=== PATIENT | male | born 1945 | race Caucasian/White ===

== ENCOUNTER 2017-09-05 14:42 | Inpatient (IN) | payer OTHER ==
--- NOTE | 2017-09-05 15:19 | EDPHY ---
H & P Time Seen by Provider: 09/05/17 15:03 HPI/ROS: CHIEF COMPLAINT: Right rib injury HISTORY OF PRESENT ILLNESS: The patient is a 72-year-old male who presents emergency department after having a mechanical fall in striking the right rib cage. Patient states that he was hiking was foot got caught. He fell forward striking his ribs. He now has moderate to severe pain on the right lateral aspect of his chest. It is worse with movement. Worse with deep breath. He does not feel short of breath at rest. He also has abrasion on his left hand right knee. He has no bony tenderness in his extremities. He is able to ambulate without difficulty. He did not strike his head or lose consciousness. REVIEW OF SYSTEMS: My complete review of systems is negative except as mentioned in the HPI. Past Medical/Surgical History: Includes hypothyroidism, anxiety, cervical fusion Smoking Status: Never smoked Physical Exam: Vitals noted. Normal oxygen saturation GENERAL: Well-appearing, in no acute distress, alert. HEAD: No evidence of trauma. EYES: PERRLA, EOMI, normal to inspection. ENT: Airway intact, no dental or oral injury, no malocclusion, no hemotympanum , normal external examination. NECK: The trachea is midline. There is no crepitus. The C-spine is nontender. NEXUS criteria is negative (no midline tenderness, no distracting injury, no altered mental status, no recent alcohol use, no focal neurologic deficit). RESPIRATORY: Clear to auscultation bilaterally, no rales, rhonchi or wheezing. There is no crepitus or palpable rib fractures. CVS: Regular rate and rhythm, no rubs, murmurs, or gallops. ABDOMEN: Soft, nontender, nondistended, normal bowel sounds, no bruising or abrasions. Pelvis: Stable. No tenderness palpation. Hips full range of motion. BACK: Normal to inspection, no spinal tenderness, no spinal step off, no notable bruising or abrasions. SKIN: Normal color, warm, dry. No pallor or diaphoresis. EXTREMITIES: Right upper extremity: Atraumatic. No visible signs of trauma. No tenderness palpation. Neurovascular intact distally. Left upper extremity: Abrasion on his right palm. No tenderness palpation. Neurovascular intact distally. Right lower extremity: The right knee abrasion. No patellar tenderness to palpation. Full range of motion. Neurovascular intact distally. Left lower extremity: Atraumatic. No visible signs of trauma. No tenderness palpation. Neurovascular intact distally. NEURO/PSYCH: Alert and oriented x 3, GCS 15, normal mood and affect, normal motor sensory exam. Constitutional: Initial Vital Signs Temperature (C) 36.6 C 09/05/17 14:46 Heart Rate 54 L 09/05/17 14:46 Respiratory Rate 20 09/05/17 14:46 Blood Pressure 144/79 H 09/05/17 14:46 O2 Sat (%) 97 09/05/17 14:46 O2 Delivery Mode Room Air Allergies/Adverse Reactions: erythromycin base Allergy (Verified 09/05/17 14:45) Penicillins Allergy (Verified 09/05/17 14:45) Sulfa (Sulfonamide Antibiotics) Allergy (Verified 09/05/17 14:45) Home Medications: Medication Instructions Recorded Acetaminophen [Tylenol 325mg (*)] 325 mg PO Q6 PRN 09/05/17 Escitalopram Oxalate [Lexapro] 10 mg PO DAILY 09/05/17 Herbals/Supplements -Info Only 1 ea PO DAILY 09/05/17 Levothyroxine [Synthroid 125 mcg 125 mcg PO DAILY06 09/05/17 (*)] Naproxen Sodium [Aleve 220 MG (*)] 220 mg PO BID PRN 09/05/17 Zolpidem Tartrate [Ambien 5MG (*)] 5 mg PO HS 09/05/17 clonazePAM [klonoPIN (*)] 1 mg PO HS PRN 09/05/17 oxyCODONE/APAP 5/325 [Percocet 1 - 2 tab PO Q6H PRN 09/05/17 5/325 (*)] Medical Decision Making - Diagnostics Imaging Results: Imaging Impressions Chest X-Ray 09/05/17 14:49 Impression: Moderate right pneumothorax. Results discussed with Dr. Sierra at 3:28 PM. ED Course/Re-evaluation: In the emergency department I discussed possible etiologies with the patient. I answered all his questions. X-ray of his chest was ordered. I do not feel he needs imaging of his hand or knee. Chest x-ray: Please refer the dictated report. There is a moderate size pneumothorax on the right I discussed the results with the patient. I answered all his questions. I discussed case with Dr. MEY Castellanos. He will come evaluate the patient. 1605: I rechecked the patient. He was doing well. He had no complaints. Dr. Castellanos was in the emergency department. He placed a chest tube on the right side. I subsequently ordered a repeat chest x-ray to observed to placement. I rechecked the patient. He was lying in bed tolerating the chest tube. His saturation was normal. He was given fentanyl 100 mcg IV for pain control. Differential Diagnosis: My differential includes but is not limited to fracture, dislocation, contusion , pneumothorax, hemothorax, liver injury, hip fracture, knee fracture, contusion - Data Points Laboratory Results: Laboratory Results 09/05/17 15:48 09/05/17 15:48 09/05/17 09/05/17 09/05/17 15:48 15:48 15:48 WBC 8.01 10^3/uL 10^3/uL (3.80-9.50) RBC 4.71 10^6/uL 10^6/uL (4.40-6.38) Hgb 15.3 g/dL g/dL (13.7-17.5) Hct 43.7 % % (40.0-51.0) MCV 92.8 fL fL (81.5-99.8) MCH 32.5 pg pg (27.9-34.1) MCHC 35.0 g/dL g/dL (32.4-36.7) RDW 13.1 % % (11.5-15.2) Plt Count 184 10^3/uL 10^3/uL (150-400) MPV 11.5 fL fL (8.7-11.7) Neut % (Auto) 81.0 % H % (39.3-74.2) Lymph % (Auto) 9.7 % L % (15.0-45.0) Cooke % (Auto) 7.6 % % (4.5-13.0) Eos % (Auto) 0.5 % L % (0.6-7.6) Baso % (Auto) 0.6 % % (0.3-1.7) Nucleat RBC Rel Count 0.0 % % (0.0-0.2) Absolute Neuts (auto) 6.48 10^3/uL 10^3/uL (1.70-6.50) Absolute Lymphs (auto) 0.78 10^3/uL L 10^3/uL (1.00-3.00) Absolute Monos (auto) 0.61 10^3/uL 10^3/uL (0.30-0.80) Absolute Eos (auto) 0.04 10^3/uL 10^3/uL (0.03-0.40) Absolute Basos (auto) 0.05 10^3/uL 10^3/uL (0.02-0.10) Absolute Nucleated RBC 0.00 10^3/uL 10^3/uL (0-0.01) Immature Gran % 0.6 % % (0.0-1.1) Immature Gran # 0.05 10^3/uL 10^3/uL (0.00-0.10) PT 14.8 SEC SEC (12.0-15.0) INR 1.14 (0.83-1.16) APTT 24.2 SEC SEC (23.0-38.0) Sodium 138 mEq/L mEq/L (135-145) Potassium 4.5 mEq/L mEq/L (3.3-5.0) Chloride 103 mEq/L mEq/L (97-110) Carbon Dioxide 22 mEq/l mEq/l (22-31) Anion Gap 13 mEq/L mEq/L (8-16) BUN 21 mg/dL mg/dL (7-23) Creatinine 0.9 mg/dL mg/dL (0.7-1.3) Estimated GFR > 60 Glucose 96 mg/dL mg/dL (70-100) Calcium 9.4 mg/dL mg/dL (8.5-10.4) Medications Given: Discontinued Medications Fentanyl (Sublimaze) 50 mcg IVP EDNOW ONE Stop: 09/05/17 16:22 Last Admin: 09/05/17 16:29 Dose: 50 mcg Fentanyl (Sublimaze) 100 mcg IVP EDNOW ONE Stop: 09/05/17 17:06 Last Admin: 09/05/17 17:06 Dose: 100 mcg Midazolam HCl (Versed) 1 mg IVP EDNOW ONE Stop: 09/05/17 17:06 Last Admin: 09/05/17 17:07 Dose: 1 mg Ondansetron HCl (Zofran) 4 mg IVP EDNOW ONE Stop: 09/05/17 16:22 Last Admin: 09/05/17 16:29 Dose: 4 mg Departure - Departure Disposition: [facility] Inpatient Acute Clinical Impression: Contusion of rib on right side Qualifiers: Encounter type: initial encounter Qualified Code(s): S20.211A - Contusion of right front wall of thorax, initial encounter Pneumothorax Qualifiers: Encounter type: initial encounter Condition: Good
[2017-09-05 15:59] LABS: PLATELET COUNT 184 10^3/uL (150-400)
[2017-09-05 16:16] LABS: INR 1.14 (0.83-1.16); PROTIME(PATIENT) 14.8 SEC (12.0-15.0)
[2017-09-05] MEDS ORDERED: ONDANSETRON 4 MG/2 ML VIAL IVP ONE (16:21)
[2017-09-05] MEDS ORDERED: fentaNYL 100 MCG/2 ML INJ IVP ONE ×3 (16:21→17:16)
[2017-09-05] MEDS ORDERED: fentaNYL 100 MCG/2 ML INJ ONE (16:55)
[2017-09-05] MEDS ORDERED: MIDAZOLAM 2 MG/2 ML VIAL ONE (16:56)
[2017-09-05] MEDS ORDERED: MIDAZOLAM 2 MG/2 ML VIAL IVP ONE (17:05)
[2017-09-05] MEDS ORDERED: HYDROmorphONE/DILAUDID 1 MG/ML INJ IVP ONE (17:46)
[2017-09-05] MEDS ORDERED: ONDANSETRON 4 MG/2 ML VIAL IVP PRN (18:24)
[2017-09-05] MEDS ORDERED: ONDANSETRON DISINTEGRATING 4 MG TAB PO PRN (18:24)
[2017-09-05] MEDS ORDERED: HYDROmorphONE/DILAUDID 1 MG/ML INJ IVP PRN (18:24)
[2017-09-05] MEDS ORDERED: D5W 1/2 NS W/ 20 KCl/L 1,000 ML IV SCH (18:30)
[2017-09-05] MEDS: OXYCODONE/APAP 5/325 TAB PO PRN ×2 (18:55→19:56)
--- NOTE | 2017-09-05 22:40 | POSTOPPROG ---
Post Op Note Date of Operation: 09/05/17 Surgeon: Isidro Castellanos Anesthesia: IV Sedation Pre-op Diagnosis: RIB FRACTURES AND RIGHT PNEUMOTHORAX Post-op Diagnosis: SAME Indication: SHORTNESS OF BREATH Procedure: RIGHT TUBE THORACOSTOMY Findings: GOOD LUNG EXPANSION Inf/Abcess present in the surg proc area at time of surgery?: No Depth: Organ Space EBL: Minimal Complications: NONE Drains: Constavac
--- NOTE | 2017-09-05 22:42 | SOAPPROG ---
SOAP Progress Note Assessment/Plan: Assessment: 72-YEAR-OLD MALE WITH A FALL SUSTAINING RIGHT CHEST WALL PAIN BUT NO LOSS OF CONSCIOUSNESS CHEST X-RAY SHOWS 40% RIGHT PNEUMOTHORAX WITH NONDISPLACED RIB FRACTURE RISKS AND OPTIONS FULLY DISCUSSED AND HE WISHES TO PROCEED WITH CHEST TUBE PLACEMENT HEENT NONICTERIC, PERRLA, NO ADENOPATHY NECK SUPPLE NONTENDER CHEST DECREASED BREATH SOUNDS ON THE RIGHT WITH SOME TENDERNESS OVER THE RIGHT LATERAL RIBS COR REGULAR RHYTHM ABDOMEN SOFT NONTENDER EXTREMITIES FULL RANGE OF MOTION FULL PULSES NEURO PHYSIOLOGIC AND SYMMETRIC PSYCH ALERT ORIENTED AND COOPERATIVE SKIN DRY AND INTACT Plan: CHEST TUBE PLACEMENT AND ADMIT FOR OBSERVATION AND PLEUR-EVAC SUCTION 09/05/17 22:40 Objective: Vital Signs Temp Pulse Resp BP Pulse Ox 36.6 C 61 18 121/71 H 98 09/05/17 19:22 09/05/17 19:22 09/05/17 19:22 09/05/17 19:22 09/05/17 19:22 PT 14.8 SEC (12.0-15.0) 09/05/17 15:48 INR 1.14 (0.83-1.16) 09/05/17 15:48 ICD10 Worksheet Patient Problems: Problems Problem Status Onset Contusion of rib on right side Acute Pneumothorax Acute
--- NOTE | 2017-09-05 23:40 | GHP ---
[f rep st] PREOP HISTORY AND PHYSICAL HISTORY OF PRESENT ILLNESS: A 72-year-old male, who stumbled and fell, falling on his right side, sustaining a blow to his right ribs. He has been in pain for most of the day and finally came to the ER, where a chest x-ray reveals a 40 % pneumothorax and some nondisplaced rib fractures on the right. Denies any loss of consciousness, but has felt short of breath with some pain taking a deep breath. SOCIAL HISTORY: Reveals him to be a nonsmoker. PAST MEDICAL HISTORY: Includes hypothyroidism, anxiety, a cervical neck fusion. REVIEW OF SYSTEMS: Negative on a full 10-point review of systems, except as related to the HPI. ALLERGIES: Include erythromycin base, penicillin, sulfa. MEDICATIONS: Include Synthroid, Lexapro and Tylenol. PHYSICAL EXAMINATION: GENERAL: Reveals an alert 72-year-old male in no acute distress. HEAD AND NECK: Reveals no signs of trauma. PERRLA. Normal occlusion. TMs clear. NECK: Supple and nontender. CHEST: Reveals decreased breath sounds on the right with some tenderness over his right lateral ribs. Clavicles are intact. COR: Reveals a regular rhythm without murmurs. ABDOMEN : Soft and nontender without masses. EXTREMITIES: Benign with full range of motion and full pulses. NEUROLOGIC: Physiologic and symmetric. PSYCH: Reveals him to be alert, cooperative and oriented. IMPRESSION: Moderate right pneumothorax with probable right rib fracture. PLAN: Right chest tube placement. Risks and options have been fully discussed and he wishes to proceed. /[id number]/MODL MTDD
[2017-09-06] MEDS ORDERED: KETOROLAC 15 MG/1 ML SDV ONE (18:50)
[2017-09-06] MEDS: OXYCODONE/APAP 5/325 TAB PO PRN (20:15)
[2017-09-06] MEDS ORDERED: LIDOCAINE 4%/MENTHOL 1% PATCH TD ONE (20:38)
[2017-09-06] MEDS: LIDOCAINE 4%/MENTHOL 1% PATCH TD SCH (21:00)
[2017-09-06] MEDS: HYDROmorphone HCL/NS 0.5 MG/ML SYR IVP PRN (21:00)
--- NOTE | 2017-09-06 22:31 | ASMTCMCOM ---
CM Note CM Note Notes: Pt has pneumothorax and rib fxs after fall hiking. No therapies ordered. CM to follow for d/c planning. Date Signed: 09/06/2017 03:21 PM Electronically Signed By:JANIE Amador
[2017-09-07] MEDS: KETOROLAC 15 MG/1 ML SDV IVP PRN ×2 (00:50→07:19)
[2017-09-07] MEDS: HYDROmorphone HCL/NS 0.5 MG/ML SYR IVP PRN ×3 (04:05→16:59)
[2017-09-07] MEDS: OXYCODONE/APAP 5/325 TAB PO PRN ×2 (04:05→08:57)
[2017-09-07] MEDS: LIDOCAINE 4%/MENTHOL 1% PATCH TD SCH ×2 (09:00→17:45)
--- NOTE | 2017-09-07 11:07 | TRAUMAPN ---
Trauma Progress Note Subjective: awake and alert/mild cervical pain CT remains on suction Objective: Vital Signs Temp Pulse Resp BP Pulse Ox 36.8 C 52 L 16 98/57 L 94 09/07/17 08:33 09/07/17 08:33 09/07/17 08:33 09/07/17 08:33 09/07/17 08:33 09/06/17 09/07/17 09/08/17 05:59 05:59 05:59 Intake Total 3000 400 Output Total 460 200 Balance 2540 200 PT 14.8 SEC (12.0-15.0) 09/05/17 15:48 INR 1.14 (0.83-1.16) 09/05/17 15:48 - C-Spine Clearance Cervical Spine Cleared: No Physical Exam - Physical Exam General Appearance: WD/WN, alert, no apparent distress EENT: PERRL/EOMI Neck: tender midline (mid cervical) Respiratory: lungs clear, normal breath sounds, pain on movement Cardiac/Chest: regular rate, rhythm Abdomen: non-tender, soft Extremities: normal range of motion, non-tender Neuro/Psych: no motor/sensory deficits, alert, normal mood/affect, oriented x 3
--- NOTE | 2017-09-07 11:54 | PDMN ---
Medical Necessity Medical necessity: est los>2mn for 40% for pneumothorax 40 % r/t mechanical fall with R nondisplaced rib fx's; requires R chest tube thoracostomy, and pain & chest tube management; per order 09/06/17, and H&P 09/05/17
[2017-09-07] MEDS: oxyCODONE IR 5 MG TAB PO PRN ×2 (13:01→17:04)
[2017-09-07] MEDS: IBUPROFEN 800 MG TAB PO SCH ×2 (14:22→22:07)
--- NOTE | 2017-09-07 14:58 | GHP ---
[facility] Patient Name: BRANDON CHRISTIAN JR Rpt#: [id number] Unit Number: [id number] Attending/ER Physician: Isidro Castellanos MD Patient Type: ADM Anastacio Adm Date/Source: 09/05/17 EMR Discharge Date: Primary Carrier: MEDICARE OUTPATIENT Signed PREOP HISTORY AND PHYSICAL HISTORY OF PRESENT ILLNESS: A 72-year-old male, who stumbled and fell, falling on his right side, sustaining a blow to his right ribs. He has been in pain for most of the day and finally came to the ER, where a chest x-ray reveals a 40% pneumothorax and some nondisplaced rib fractures on the right. Denies any loss of consciousness, but has felt short of breath with some pain taking a deep breath. SOCIAL HISTORY: Reveals him to be a nonsmoker. PAST MEDICAL HISTORY: Includes hypothyroidism, anxiety, a cervical neck fusion. REVIEW OF SYSTEMS: Negative on a full 10-point review of systems, except as related to the HPI. ALLERGIES: Include erythromycin base, penicillin, sulfa. MEDICATIONS: Include Synthroid, Lexapro and Tylenol. PHYSICAL EXAMINATION: GENERAL: Reveals an alert 72-year-old male in no acute distress. HEAD AND NECK: Reveals no signs of trauma. PERRLA. Normal occlusion. TMs clear. NECK: Supple and nontender. CHEST: Reveals decreased breath sounds on the right with some tenderness over his right lateral ribs. Clavicles are intact. COR: Reveals a regular rhythm without murmurs. ABDOMEN : Soft and nontender without masses. EXTREMITIES: Benign with full range of motion and full pulses. NEUROLOGIC: Physiologic and symmetric. PSYCH: Reveals him to be alert, cooperative and oriented. IMPRESSION: Moderate right pneumothorax with probable right rib fracture. PLAN: Right chest tube placement. Risks and options have been fully discussed and he wishes to proceed. /[id number]/MODL NOTE: At the time of director furniture of this report, there may have been blank(s) to be edited by the dictating clinician. By signing this report, I attest that I have reviewed any blanks in the document, and have either corrected them and/or have no further information to add. Isidro Castellanos MD 09/06/17 0823 <Electronically signed by Isidro Castellanos MD> 1927 T: MODL 09/05/17 3425 CC: Isidro Castellanos MD; ALEX WETZEL
[2017-09-07] MEDS: SENNOSIDES/DOCUSATE SODIUM TAB PO SCH ×2 (15:25→22:08)
--- NOTE | 2017-09-07 17:04 | SOAPPROG ---
Downtime Inpatient Late Entry SOAP Note: Cam is having 8/10 pain despite IV Dilaudid and Oxycodone 15 mg q 4 H CXR reviewed/no change after placing to water seal CT removed using sterile technique-uncomplicated Will add Oxycontin for long acting pain relief and check CXR in AM S MD Chau, FACS
[2017-09-07] MEDS: ACETAMINOPHEN 500 MG TAB PO PRN (17:46)
[2017-09-08] MEDS ORDERED: clonazePAM 1 MG TAB PO PRN (02:38)
[2017-09-08] MEDS: LIDOCAINE 4%/MENTHOL 1% PATCH TD SCH (04:37)
[2017-09-08] MEDS: IBUPROFEN 800 MG TAB PO SCH (05:20)
[2017-09-08] MEDS ORDERED: LEVOTHYROXINE 125 MCG TAB PO SCH (06:00)
[2017-09-08 07:31] VITALS: BP 114/76
[2017-09-08] MEDS: SENNOSIDES/DOCUSATE SODIUM TAB PO SCH (07:35)
[2017-09-08] MEDS: ACETAMINOPHEN 500 MG TAB PO PRN (07:35)
[2017-09-08] MEDS ORDERED: PATCH REMOVAL 1 EA PATCH TD SCH (09:00)
[2017-09-08] MEDS ORDERED: ESCITALOPRAM OXALATE 10 MG TAB PO SCH (09:00)
--- NOTE | 2017-09-08 11:40 | SOAPPROG ---
SOAP Progress Note Assessment/Plan: Assessment: Plan: Subjective: chest tube out. cxr today ok luings clear, abd soft. dc home Objective: Vital Signs Temp Pulse Resp BP Pulse Ox 36.6 C 41 L 16 114/76 93 09/08/17 07:30 09/08/17 07:30 09/08/17 07:30 09/08/17 07:30 09/08/17 07:30 09/07/17 09/08/17 09/09/17 05:59 05:59 05:59 Intake Total 3000 1400 400 Output Total 460 375 Balance 2540 1025 400 PT 14.8 SEC (12.0-15.0) 09/05/17 15:48 INR 1.14 (0.83-1.16) 09/05/17 15:48 ICD10 Worksheet Patient Problems: Problems Problem Status Onset Contusion of rib on right side Acute Pneumothorax Acute
--- NOTE | 2017-09-08 11:57 | GDS ---
[f rep st] DISCHARGE SUMMARY PRESENT ILLNESS: 72-year-old male fell on the day of admission 09/05/2017, was noticed to have a 40% right pneumothorax. He underwent right chest tube placement, which has now been removed. Probably has a cracked rib, although not easily visible. FINAL DIAGNOSIS: Right pneumothorax. DISPOSITION: Home. Follow up with Dr. Ritchie next week. /[id number]/MODL
[2017-09-08] MEDS: oxyCODONE IR 5 MG TAB PO PRN (12:12)
--- NOTE | 2017-09-08 13:59 | ASMTCMCOM ---
CM Note CM Note Notes: Pt medically stable for d/c, no CM d/c needs identified. Date Signed: 09/08/2017 01:58 PM Electronically Signed By:JANIE Amador
[2017-09-08] MEDS ORDERED: ZOLPIDEM TARTRATE 5 MG TAB PO SCH (21:00)
== END 2017-09-08 12:31 | disposition home or self-care (01) | DRG 167 ==
LOC: F3N 18:02 → OBSVTOIN 09-06 09:52
PROVIDERS: ADMIT Surgery; ATTEND Surgery
PROC: 0B9K30Z Drainage of Right Lung with Drainage Device, Percutaneous Approach (ICD-10-PCS; principal; 2017-09-05)
DX: S27.0XXA Traumatic pneumothorax, initial encounter (principal); S22.31XA Fracture of one rib, right side, initial encounter for closed fracture; W01.10XA Fall on same level from slipping, tripping and stumbling with subsequent striking against unspecified object, initial encounter; Y93.01 Activity, walking, marching and hiking; E03.9 Hypothyroidism, unspecified; F41.9 Anxiety disorder, unspecified; Z98.1 Arthrodesis status
CPT/HCPCS: 96374; J1170; J1885; J2250; J2405; J3010

== ENCOUNTER → 2017-09-14 | Outpatient (CLI) | payer OTHER | LOC: FLAB 13:29 | PROVIDERS: ATTEND Surgery | DX: Z13.83 Encounter for screening for respiratory disorder NEC (principal) ==

== ENCOUNTER 2018-01-08 14:00 | Emergency (ER) | payer OTHER ==
[2018-01-08] MEDS ORDERED: NS 1,000 ML IV ONE ×3 (14:32→16:22)
[2018-01-08] MEDS ORDERED: KETOROLAC 15 MG/1 ML SDV IVP ONE (14:36)
[2018-01-08] MEDS ORDERED: ONDANSETRON 4 MG/2 ML VIAL IVP ONE (14:36)
--- NOTE | 2018-01-08 14:38 | EDPHY ---
H & P Stated Complaint: poss rx to flu vacc Time Seen by Provider: 01/08/18 14:10 HPI/ROS: CHIEF COMPLAINT: Fever, myalgias HISTORY OF PRESENT ILLNESS: 72-year-old male presents with fever and myalgias. He received a influenza vaccination and Pneumovax 2 days ago. Onset of fever several hours later. Fever to 103, some relief with aspirin. Associated with moderate myalgias, nausea and vomiting. Continues to have nausea, but not vomiting today. Tolerating oral fluids. Left upper arm at the injection site is also quite sore and red. REVIEW OF SYSTEMS: complete 10 point ROS reviewed and is negative except for the noted elements in the HPI - Personal History Current Tetanus Diphtheria and Acellular Pertussis (TDAP): Yes - Medical/Surgical History Hx Asthma: No Hx Chronic Respiratory Disease: No Hx Diabetes: No Hx Cardiac Disease: No Hx Renal Disease: No Hx Cirrhosis: No Hx Alcoholism: No Hx HIV/AIDS: No Hx Splenectomy or Spleen Trauma: No Other PMH: hypothyroid, anxiety, C4,5,6 fusion, pneumothorax - Social History Smoking Status: Never smoked Additional Social History: - Physical Exam Exam: General Appearance: Alert, pleasant, appears fatigued, nontoxic-appearing Eyes: Pupils equal and round, no conjunctival pallor or injection ENT, Mouth: Mucous membranes dry Neck: Normal inspection Respiratory: Lungs are clear to auscultation Cardiovascular: Regular rate and rhythm Gastrointestinal: Abdomen is soft and nontender Neurological: A&O, nonfocal, normal gait Skin: Warm and dry Extremities: Left deltoid area-patchy erythema, warmth and tenderness over the deltoid, no fluctuance Psychiatric: Mood and affect normal Constitutional: Initial Vital Signs Temperature (C) 36.9 C 01/08/18 14:05 Heart Rate 71 01/08/18 14:05 Respiratory Rate 16 01/08/18 14:05 Blood Pressure 128/79 H 01/08/18 14:05 O2 Sat (%) 95 01/08/18 14:05 O2 Delivery Mode Room Air Allergies/Adverse Reactions: erythromycin base Allergy (Verified 09/05/17 14:45) Penicillins Allergy (Verified 09/05/17 14:45) Sulfa (Sulfonamide Antibiotics) Allergy (Verified 09/05/17 14:45) Home Medications: Medication Instructions Recorded Levothyroxine [Synthroid 125 mcg 125 mcg PO DAILY06 09/05/17 (*)] Naproxen Sodium [Aleve 220 MG (*)] 220 mg PO BID PRN 09/05/17 Zolpidem Tartrate [Ambien 5MG (*)] 5 mg PO HS 09/05/17 oxyCODONE/APAP 5/325 [Percocet 1 - 2 tab PO Q6H PRN 09/05/17 5/325 (*)] Acetaminophen [Tylenol ES 500 mg 1,000 mg PO Q8 PRN 09/09/17 (*)] Escitalopram Oxalate 10 mg PO DAILY 09/09/17 clonazePAM [klonoPIN (*)] 1 mg PO HS PRN 09/09/17 Cephalexin [Keflex (*)] 500 mg PO TID #30 cap 01/08/18 Ondansetron Odt [Zofran Odt 4 mg 4 mg PO Q4 PRN #6 tab 01/08/18 (*)] Medical Decision Making - Diagnostics Imaging Results: Imaging Impressions Chest X-Ray 01/08/18 14:33 Impression: Normal. No pneumonia. Imaging: I viewed and interpreted images myself ED Course/Re-evaluation: Patient presents with fever, dehydration and likely cellulitis related to recent immunization. Does not meet SIRS criteria. IV normal saline 2 L, Zofran 4 mg IV and Toradol 15 mg IV given. Laboratory and x-ray results discussed with the patient. I will treat him for cellulitis of the left upper extremity. Allergies reviewed with the patient. He has tolerated Keflex well in the past. Keflex 500 mg orally given and a prescription was written. He feels much better after IV fluids, Zofran and Toradol. The area of erythema was marked by the ED R N. The patient will follow up with Dr. Ramos tomorrow for recheck. Differential Diagnosis: Differential diagnosis includes pyelonephritis, cholecystitis, influenza, cellulitis, pneumonia, abscess, meningitis. - Data Points Laboratory Results: Laboratory Results 01/08/18 14:40 01/08/18 14:40 01/08/18 01/08/18 01/08/18 14:40 14:40 14:40 WBC 13.97 10^3/uL H 10^3/uL (3.80-9.50) RBC 4.38 10^6/uL L 10^6/uL (4.40-6.38) Hgb 14.3 g/dL g/dL (13.7-17.5) Hct 40.0 % % (40.0-51.0) MCV 91.3 fL fL (81.5-99.8) MCH 32.6 pg pg (27.9-34.1) MCHC 35.8 g/dL g/dL (32.4-36.7) RDW 12.4 % % (11.5-15.2) Plt Count 134 10^3/uL L 10^3/uL (150-400) MPV 10.9 fL fL (8.7-11.7) Neut % (Auto) 86.5 % H % (39.3-74.2) Lymph % (Auto) 3.4 % L % (15.0-45.0) Hinds % (Auto) 8.7 % % (4.5-13.0) Eos % (Auto) 0.1 % L % (0.6-7.6) Baso % (Auto) 0.2 % L % (0.3-1.7) Nucleat RBC Rel Count 0.0 % % (0.0-0.2) Absolute Neuts (auto) 12.08 10^3/uL H 10^3/uL (1.70-6.50) Absolute Lymphs (auto) 0.48 10^3/uL L 10^3/uL (1.00-3.00) Absolute Monos (auto) 1.22 10^3/uL H 10^3/uL (0.30-0.80) Absolute Eos (auto) 0.01 10^3/uL L 10^3/uL (0.03-0.40) Absolute Basos (auto) 0.03 10^3/uL 10^3/uL (0.02-0.10) Absolute Nucleated RBC 0.00 10^3/uL 10^3/uL (0-0.01) Immature Gran % 1.1 % % (0.0-1.1) Immature Gran # 0.15 10^3/uL H 10^3/uL (0.00-0.10) Platelet Estimate TNP Sodium 132 mEq/L L mEq/L (135-145) Potassium 4.2 mEq/L mEq/L (3.3-5.0) Chloride 100 mEq/L mEq/L (97-110) Carbon Dioxide 20 mEq/l L mEq/l (22-31) Anion Gap 12 mEq/L mEq/L (6-14) BUN 17 mg/dL mg/dL (7-23) Creatinine 0.8 mg/dL mg/dL (0.7-1.3) Estimated GFR > 60 Glucose 106 mg/dL H mg/dL (70-100) Calcium 9.0 mg/dL mg/dL (8.5-10.4) Nasal Influenza A PCR NEGATIVE FOR FLU A (NEGATIVE) Nasal Influenza B PCR NEGATIVE FOR FLU B (NEGATIVE) Medications Given: Discontinued Medications Cephalexin (Keflex 500 Mg Prepack#4) 1 btl TAKEHOME EDNOW ONE PRN Reason: Protocol Stop: 01/08/18 17:35 Last Admin: 01/08/18 17:39 Dose: 1 btl Cephalexin HCl (Keflex) 500 mg PO EDNOW ONE PRN Reason: Protocol Stop: 01/08/18 16:42 Last Admin: 01/08/18 16:46 Dose: 500 mg Sodium Chloride (Ns) 1,000 mls @ 0 mls/hr IV ONCE ONE; Wide Open PRN Reason: Protocol Stop: 01/08/18 14:33 Last Admin: 01/08/18 14:43 Dose: 1,000 mls Sodium Chloride (Ns) 1,000 mls @ 0 mls/hr IV ONCE ONE; Wide Open PRN Reason: Protocol Stop: 01/08/18 14:33 Last Admin: 01/08/18 14:44 Dose: 1,000 mls Sodium Chloride (Ns) 1,000 mls @ 0 mls/hr IV ONCE ONE; Wide Open PRN Reason: Protocol Stop: 01/08/18 16:23 Last Admin: 01/08/18 16:44 Dose: 1,000 mls Ketorolac Tromethamine (Toradol) 15 mg IVP EDNOW ONE Stop: 01/08/18 14:37 Last Admin: 01/08/18 14:49 Dose: 15 mg Ondansetron HCl (Zofran) 4 mg IVP EDNOW ONE Stop: 01/08/18 14:37 Last Admin: 01/08/18 14:49 Dose: 4 mg Departure - Departure Disposition: Home, Routine, Self-Care Clinical Impression: Cellulitis Qualifiers: Site of cellulitis: extremity Site of cellulitis of extremity: upper extremity Laterality: left Qualified Code(s): L03.114 - Cellulitis of left upper limb Condition: Good Instructions: Cellulitis (ED) Additional Instructions: Ibuprofen 600 mg 3 times daily while the pain persists. Take Keflex 1 tablet every 8 hr. Referrals: Roland Ramos MD [Primary Care Provider] - 1-2 days without fail Prescriptions: Cephalexin [Keflex (*)] 500 mg PO TID #30 cap Ondansetron Odt [Zofran Odt 4 mg (*)] 4 mg PO Q4 PRN #6 tab PRN Reason: Nausea
[2018-01-08 15:25] LABS: PLATELET COUNT 134 10^3/uL (150-400)
[2018-01-08] MEDS ORDERED: CEPHALEXIN 500 MG CAP PO ONE (16:41)
[2018-01-08 17:28] VITALS: BP 136/70
[2018-01-08] MEDS ORDERED: CEPHALEXIN 500MG PREPACK#4 BTL TAKEHOME ONE (17:34)
== END 2018-01-08 17:45 | disposition home or self-care (01) ==
DX: L03.114 Cellulitis of left upper limb (principal); E86.9 Volume depletion, unspecified
CPT/HCPCS: 71046; 96361; 96374; 96375; 99284; J1885; J2405

== ENCOUNTER → 2018-09-02 | Outpatient (CLI) | payer OTHER | LOC: BMCIMAGING 11:33 ==

== ENCOUNTER 2018-09-12 16:50 | Observation (INO) | payer OTHER | END 2018-09-13 14:31 | disposition home or self-care (01) | LOC: F2W 20:05 ==

== ENCOUNTER → 2018-09-12 | Outpatient (CLI) | payer OTHER | LOC: BMCIMAGING 14:20 ==